=== PATIENT | male | born 1985 | race African-American/Black ===

== ENCOUNTER 2016-07-21 21:00 | Emergency (ER) | payer BC ==
[~2016-07-21] VITALS: Ht 175.3 cm; Wt 83.9 kg
[2016-07-21 21:03] VITALS: BP 135/79
[2016-07-21] MEDS ORDERED: HYDROCODONE/APAP 5/325MG 1 EACH TABLET ONE (21:22)
[2016-07-21] MEDS ORDERED: HYDROCODONE/APAP 5/325MG 1 EACH TABLET PO ONE (21:30)
== END 2016-07-21 22:18 | disposition home or self-care (01) ==
LOC: ER 21:03
DX: S86.012A Strain of left Achilles tendon, initial encounter (principal); W21.81XA Striking against or struck by football helmet, initial encounter; Y93.02 Activity, running; Y92.89 Other specified places as the place of occurrence of the external cause; Y99.9 Unspecified external cause status
CPT/HCPCS: 29505; 73590; 99284; A4606; Z7610